=== PATIENT | female | born 1970 | race Caucasian/White ===

== ENCOUNTER → 2020-10-31 08:28 | Outpatient (BNVA) | payer OTHER, SELFPAY | PROVIDERS: PCP Internal Medicine; Visit Provider Advanced Practice Midwife | DX: Z76.89 Persons encountering health services in other specified circumstances (principal) ==

== ENCOUNTER 2020-11-21 12:48 | Outpatient (REF) | payer OTHER, SELFPAY ==
--- NOTE | 2020-11-21 12:55 | US_ITS ---
EXAMINATION: ULTRASOUND PELVIS COMPLETE CLINICAL INFORMATION: Abnormal uterine and vaginal bleeding COMPARISON: None TECHNIQUE: Transabdominal and transvaginal imaging of pelvis is performed. FINDINGS: There is is anteverted and anteflexed measuring 12.2 cm in length, 4.6 cm in AP and 7.1 cm in transverse dimension. Endometrial thickness is 1.16 cm. No focal lesion seen. There are small anechoic nabothian cysts seen in the cervix. The right ovary is not visualized. The left ovary measures 2.22 x 1.49 x 1.48 cm and volume 2.56 cm mL. Previously it measured 4.3 x 1.6 x 2.9 cm. There is no free fluid in cul-de-sac. US/US pelvic complete IMPRESSION: Small nabothian cysts in the cervix. The uterus is unremarkable. The left ovary is unremarkable. Right ovary is not seen.
--- NOTE | 2020-11-21 12:55 | US_ITS ---
EXAMINATION: ULTRASOUND PELVIS COMPLETE CLINICAL INFORMATION: Abnormal uterine and vaginal bleeding COMPARISON: None TECHNIQUE: Transabdominal and transvaginal imaging of pelvis is performed. FINDINGS: There is is anteverted and anteflexed measuring 12.2 cm in length, 4.6 cm in AP and 7.1 cm in transverse dimension. Endometrial thickness is 1.16 cm. No focal lesion seen. There are small anechoic nabothian cysts seen in the cervix. The right ovary is not visualized. The left ovary measures 2.22 x 1.49 x 1.48 cm and volume 2.56 cm mL. Previously it measured 4.3 x 1.6 x 2.9 cm. There is no free fluid in cul-de-sac. US/US transvaginal IMPRESSION: Small nabothian cysts in the cervix. The uterus is unremarkable. The left ovary is unremarkable. Right ovary is not seen.
== END 2020-11-21 12:49 | disposition home or self-care (01) ==
LOC: HO.HMGCX 12:48
PROVIDERS: PCP Internal Medicine; Visit Provider Advanced Practice Midwife
DX: N93.9 Abnormal uterine and vaginal bleeding, unspecified (principal)
CPT/HCPCS: 76830; 76856

== ENCOUNTER → 2020-12-05 15:12 | Outpatient (BNVA) | payer OTHER, SELFPAY | PROVIDERS: PCP Internal Medicine; Visit Provider Advanced Practice Midwife ==

== ENCOUNTER → 2020-12-09 15:23 | Outpatient (BNVA) | payer OTHER, SELFPAY | PROVIDERS: PCP Internal Medicine; Visit Provider Obstetrics & Gynecology | DX: Z76.89 Persons encountering health services in other specified circumstances (principal) ==

== ENCOUNTER → 2020-12-21 15:49 | Outpatient (BNVA) | payer OTHER, SELFPAY | PROVIDERS: PCP Internal Medicine; Visit Provider Obstetrics & Gynecology | DX: Z76.89 Persons encountering health services in other specified circumstances (principal) ==

== ENCOUNTER 2020-12-23 06:40 | Day surgery (SDC) | payer OTHER, SELFPAY ==
--- NOTE | 2020-12-22 09:13 | P.CONAN_ITS ---
Documented by User: Sandra Poe 12/22/20 09:14 HPI - Anesthesia Eval Consult details Narrative: 50yo F for D&C Diagnostic Hysteroscopy Poss Myomectomy, Poss Polypectomy FOR[facility], [facility] Past Medical History Medical History Lobular carcinoma in situ (LCIS) of left breast Family History Family History Father Heart disease Mother Diabetes mellitus Hypertension High cholesterol Maternal Grandmother Diabetes mellitus Maternal Grandfather Emphysema lung Surgical History Surgical History H/O breast biopsy Social History Social History Alcohol intake: current Alcohol intake frequency: 0-2 drinks per day Smoking Status: Never smoker Use of substances other than those prescribed or required for medical reasons: No Advance Directives: No Advance Directives Information Provided: Yes Sexual orientation: Straight/Heterosexual Meds Allergies Allergy/AdvReac Type Severity Reaction Status Date / Time No Known Allergies Allergy Unknown Verified 12/21/20 15:55 Home Medications Medication Instructions Recorded Confirmed Type No Known Home Meds 12/09/20 12/21/20 History Exam Exam Date and Time: December 22, 2020912 Assessment and Plan Assessment Anesthesia Assessment: Chart Reviewed Documented by User: Staci Campos 12/23/20 07:39 [facility] Past Medical History Medical History Lobular carcinoma in situ (LCIS) of left breast Family History Family History Father Heart disease Mother Diabetes mellitus Hypertension High cholesterol Maternal Grandmother Diabetes mellitus Maternal Grandfather Emphysema lung Surgical History Surgical History H/O breast biopsy Social History Social History Alcohol intake: current Alcohol intake frequency: 0-2 drinks per day Smoking Status: Never smoker Use of substances other than those prescribed or required for medical reasons: No Advance Directives: No Advance Directives Information Provided: Yes Sexual orientation: Straight/Heterosexual Meds Allergies Allergy/AdvReac Type Severity Reaction Status Date / Time No Known Allergies Allergy Unknown Verified 12/21/20 15:55 Home Medications Medication Instructions Recorded Confirmed Type No Known Home Meds 12/09/20 12/21/20 History Exam Airway Mallampati Class: I TM Dist: >3cm Neck ROM: Full Loose/Missing/Broken Teeth: No Heart: RRR Lungs: CTA Assessment and Plan Assessment Anesthesia Assessment: Anesthesia Plan Discussed and Chart Reviewed Final Anesthetic Review NPO: Yes ASA Class: I Final Preanesthetic Review: Meds/Allgs Chart Reviewed, Consent Obtained/Reviewed and Anes Risks/Benef Reviewed Patient Risk: Low Procedure Risk: Low Anesthetic Plan Anesthetic Plan: GA Disposition: Standard PACU
[2020-12-23 06:58] VITALS: BP 113/63; PULSE 67; RESP 16; TEMP 37.2; O2SAT 99; BMI 30.2
[2020-12-23] MEDS: Lactated Ringers 1,000 ML 100 ML IVCONT (07:10)
--- NOTE | 2020-12-23 07:49 | MHC.SHP ---
Pre-Procedural Eval Section A The patient is an INPATIENT: No Changes since office visit: No Cold of Flu in the past 2 weeks, No New Medical Problems, No Changes in Medication and No Patient answered all questions The History & Physical has been completed within 30 days and I have reviewed it.: Yes Section B Chief Complaint: Post Menopausal Bleeding Allergies: Allergies Allergy/AdvReac Type Severity Reaction Status Date / Time No Known Allergies Allergy Unknown Verified 12/21/20 15:55 Plan Diagnosis/Plan: Unchanged I have reviewed the history and physical and performed a pertinent physical examination on my patient. No changes have occurred unless specified.
--- NOTE | 2020-12-23 08:21 | PM.OP ---
Brief Operative Note Date of Service: 12/23/20 Pre-op diagnosis: Post Menopausal bleeding with thickened endometrial stripe by US Post-op diagnosis: other (No endometrial pathology) Procedure: Hysteroscopy D&C, Polypectomy Surgeon: Itz Sesay MD Anesthesia: MAC Estimated blood loss (mL): 0 Pathology: other (Endometrial Scrapping. Polyp) Condition: stable Disposition: PACU
--- NOTE | 2020-12-23 08:23 | W.PM.OPN ---
Operative Note Operative Note Date of Service: 12/23/20 Narrative: Preop Diagnosis: Postmenopausal bleeding with thickened endometrial stripe by ultrasound Operation: Diagnostic Hysteroscopy, Dilataion & Curettage Post Op Diagnosis: normal endometrial and endocervical cavity no evidence of pathology QBL: Minimal Anesthesia: MAC Surgeon: Itz Sesay MD Reinforcing Steel Erector: None Complication: None Pathology: Endometrial Scrapings Procedure: The patient was put in the dorsal lithotomy position, scrubbed, and draped in the usual manner. A sterile speculum was inserted in the patient's vagina. The anterior lip of the cervix was grasped with a single tooth tenaculum. The cervix was dilated up to 5 mm, then the scope was inserted in the patient's uterus. Inspection revealed normal endocervical & endometrial cavity with no evidence of pathology. The scope was taken out of the uterine cavity , then sharp curetting was carried on with no complications. At the end of the procedure, all instruments were taken out of the patient uterine and vaginal cavity. The single tooth tenaculum was removed and homeostasis was assured using pressure. The patient tolerated the procedure well and was transferred to the PACU in a stable condition.
[2020-12-23 08:30] VITALS: BP 107/57; PULSE 59; RESP 18; TEMP 37.1; O2SAT 98
[2020-12-23 08:35] VITALS: BP 104/63; PULSE 59; RESP 16; O2SAT 95
[2020-12-23 08:40] VITALS: BP 110/57; PULSE 88; RESP 16; O2SAT 97
[2020-12-23 08:45] VITALS: BP 107/62; PULSE 61; RESP 16; O2SAT 97
== END 2020-12-23 09:15 ==
LOC: HO.SSS 06:40
PROVIDERS: PCP Internal Medicine; Visit Provider Obstetrics & Gynecology
PROC: 0UDB8ZX Extraction of Endometrium, Via Natural or Artificial Opening Endoscopic, Diagnostic (ICD-10-PCS; CPT 58558; principal; 2020-12-23 08:30)
DX: N95.0 Postmenopausal bleeding (principal); Z85.3 Personal history of malignant neoplasm of breast
CPT/HCPCS: 58558; 88305; J1100; J1885; J2250; J2405; J3010

== ENCOUNTER 2020-12-24 10:52 | Outpatient (REF) | payer OTHER, SELFPAY ==
--- NOTE | 2020-12-24 10:57 | MM_ITS ---
EXAMINATION: MM SCREENING DIGITAL BREAST TOMOSYNTHESIS, BILATERAL CLINICAL INFORMATION: Screening. Asymptomatic. Status post left stereotactic biopsy October 2013 and excisional biopsy of November 2013 demonstrating atypical lobular hyperplasia. The lifetime risk of breast cancer based on the Tyrer-Cuzick Model is 32.3%. Additional annual screening with breast MRI may be of benefit in women with a Tyrer-Cuzick score of 20% or greater. COMPARISON: Mammography: December 19, 2019 and studies dating back to May 20, 2012 TECHNIQUE: Digital breast tomosynthesis is performed in both the craniocaudal and mediolateral oblique views along with computer-aided detection (CAD). Synthesized 2D images are generated from the tomosynthesis. Exaggerated left craniocaudal view also performed. FINDINGS: The breasts are heterogeneously dense, which may obscure small masses (ACR BI-RADS breast composition Category c). There are no significant masses, abnormal calcifications, or other abnormalities. MM/MM tomosynthesis screening BI IMPRESSION: There are no significant changes from prior study. ASSESSMENT: BI-RADS 1: Negative RECOMMENDATION: Routine annual mammography screening. This patient's information was entered into a reminder system with a target due date for their next mammogram.
== END 2020-12-24 10:53 | disposition home or self-care (01) ==
LOC: HO.MAMMO 10:52
PROVIDERS: PCP Internal Medicine; Visit Provider Internal Medicine
DX: Z12.31 Encounter for screening mammogram for malignant neoplasm of breast (principal)
CPT/HCPCS: 77063; 77067

== ENCOUNTER → 2021-07-28 15:04 | Outpatient (BNVA) | payer OTHER, SELFPAY | PROVIDERS: PCP Internal Medicine; Visit Provider Advanced Practice Midwife ==

== ENCOUNTER → 2021-11-16 13:01 | Outpatient (BNVA) | payer OTHER, SELFPAY | PROVIDERS: PCP Internal Medicine; Referring Provider Internal Medicine; Visit Provider Nurse Practitioner ==

== ENCOUNTER 2021-12-30 10:40 | Outpatient (REF) | payer OTHER, SELFPAY ==
--- NOTE | ~2021-12-30 | MM_ITS ---
EXAMINATION: MM SCREENING DIGITAL BREAST TOMOSYNTHESIS, BILATERAL CLINICAL INFORMATION: Screening. Asymptomatic. Status post left stereotactic biopsy October 2013 and excisional biopsy of November 2013 demonstrating atypical lobular hyperplasia. COMPARISON: Mammography: 12/24/2020, 12/19/2019, 12/15/2018, 10/25/2018 TECHNIQUE: Digital breast tomosynthesis is performed in both the craniocaudal and mediolateral oblique views along with computer-aided detection (CAD). Synthesized 2D images are generated from the tomosynthesis. FINDINGS: The breasts are heterogeneously dense, which may obscure small masses (ACR BI-RADS breast composition Category c). Breast tissue composition borders on average fibroglandular. Parenchymal pattern is similar to prior studies. There are no significant masses, abnormal calcifications, or other abnormalities. There is no developing density or architectural abnormality. The axilla and skin contours are unremarkable. No significant changes. MM/MM tomosynthesis screening BI IMPRESSION: No significant changes from prior studies. ASSESSMENT: BI-RADS 1: Negative RECOMMENDATION: Routine annual mammography screening. This patient's information was entered into a reminder system with a target due date for their next mammogram.
== END 2021-12-30 10:41 | disposition home or self-care (01) ==
LOC: HO.MAMMO 10:40
PROVIDERS: PCP Internal Medicine; Visit Provider Internal Medicine
DX: Z12.31 Encounter for screening mammogram for malignant neoplasm of breast (principal)
CPT/HCPCS: 77063; 77067

== ENCOUNTER 2022-03-15 09:57 | Day surgery (SDC) | payer OTHER, SELFPAY ==
[2022-03-07 15:05] VITALS: BMI 31.8
[2022-03-15 10:07] VITALS: BP 146/82; PULSE 95; RESP 20; TEMP 36.5; O2SAT 97
--- NOTE | 2022-03-15 10:46 | P.HPSUR_ITS ---
Pre-Procedural Eval Section A Date of Service: 03/15/22 Section B Chief Complaint: screening Relevant Family History (Specify if Yes): No Relevant Social History: None Present Medications: see Short Stay Collaborative assessment Medical History: Significant History (Lobular carcinoma in situ (LCIS) of left breast) History of Previous Operations: Relevant previous surgery/procedure and date(s) (hysteroscopy, breast biopsy ) Allergies: Allergies Allergy/AdvReac Type Severity Reaction Status Date / Time No Known Allergies Allergy Unknown Verified 11/16/21 13:10 Review of Systems Sugical H&P ROS: Negative: Constitution, Cardiovascular, Respiratory, Neurolo gical, Psychiatric, Hem-Onc, Allergic/Immunologic, Gastrointestinal, Genitourinary, Musculoskeletal, Integumentary, Endocrine and Eyes/Ears/Nose/Throat Exam Surgical H&P Exam: Normal: HEENT, Normal: Heart, Normal: Lungs, Normal: Extremities, Normal: Abdomen, Normal: Skin and Normal: Neurological Plan Diagnosis/Plan: Unchanged I have reviewed the history and physical and performed a pertinent physical examination on my patient. No changes have occurred unless specified.
--- NOTE | 2022-03-15 10:48 | P.BOP_ITS ---
Brief Operative Note Date of Service: 03/15/22 Pre-op diagnosis: screening colonoscopy Post-op diagnosis: same Procedure: see op note Surgeon: Americo Roger MD Anesthesia: MAC Was an Split Leather Department Supervisor used for this Procedure?: No Estimated blood loss (mL): 0 Condition: stable Disposition: PACU
--- NOTE | 2022-03-15 10:48 | P.OP_ITS ---
Operative Note Operative Note Date of Service: 03/15/22 Narrative: Operative Information Procedure Description: Colonoscopy Indication: screening colonoscopy Anesthesia: MAC COLONOSCOPY Instrument: Olympus variable stiffness pediatric scope 190L Colonoscopy Monitoring: Vital signs and clinical assessment, continuous EKG monitoring, Pulse oximetry, Carbon Dioxide monitoring and blood pressure monitoring were done throughout the procedure. Colon withdrawal time was 11 minutes. Procedure: The patient was placed in the left lateral decubitis position and pre-procedure medications were administered. After a digital rectal examination of the ano-rectum, the video colonoscope was inserted into the rectum and advanced through the colon to the cecum/TI. The colonoscope was slowly withdrawn in a retrograde panoramic fashion and the colon mucosa was carefully examined including a retroflexed view of the rectum. Findings and interventions are described below. Procedure Difficulty: easy Findings: Terminal Ileum-normal Right sided retroflexion was normal Cecum: 5-6 mm sessile polyp removed with cold forceps Ascending Colon: normal Transverse Colon -normal Descending Colon:normal Sigmoid Colon: normal Rectum: Retroflexion with small internal hemorrhoids, grade II Anorectum - internal hemorrhoids seen at anal verge Colon preparation: [place] Bowel Preparation Scale Right colon; 2 Transverse colon: 3 Left colon; 3 (0 = Unprepared colon segment with mucosa not seen due to solid stool that cannot be cleared. 1 = Portion of mucosa of the colon segment seen, but other areas of the colon segment not well seen due to staining, residual stool and/or opaque liquid. 2 = Minor amount of residual staining, small fragments of stool and/or opaque liquid, but mucosa of colon segment seen well. 3 = Entire mucosa of colon segment seen well with no residual staining, small fragments of stool or opaque liquid) Impression and Post Procedure Diagnosis: polyp internal hemorrhoids Plan: High fiber diet leaflet Avoid straining at stool, epsom salts and sitz bath, anusol supps or cream Repeat Colonoscopy in 5 years if pre cancerous polyp, 10 yrs if benign lesion or earlier if clinically indicated Above findings were reviewed with the patient and relevant handouts were provided if indicated.
[2022-03-15 11:20] VITALS: BP 115/61; PULSE 88; RESP 16; TEMP 36.4; O2SAT 97
[2022-03-15 11:35] VITALS: BP 109/70; PULSE 86; RESP 16; TEMP 36.4; O2SAT 99
--- NOTE | 2022-03-15 12:40 | HO.POSTANES ---
Post Anesthesia Evaluation Post Anesthesia Evaluation Vital Signs: Vital Signs Temp Pulse Resp BP Pulse Ox 03/15/22 11:35 97.5 F 86 16 109/70 99 03/15/22 11:20 97.5 F 88 16 115/61 97 03/15/22 10:07 97.7 F 95 20 146/82 H 97 Anesthesia: Monitored Mental Status: Awake Pain Control: Satisfactory Nausea/Vomiting: None Hydration: Adequate Anesthesia-Related Issues: No Anes. Related Issues
--- NOTE | 2022-03-15 12:53 | HO.ANESPROP2 ---
[facility] Active Problems Active Problems: All Active Problems (Updated 03/07/22 @ 15:05 by Christine Mahoney RN) Abnormal uterine bleeding (AUB) (Acute) Hot flashes (Acute) Lobular carcinoma in situ (LCIS) of left breast (Acute) Postmenopausal bleeding (Acute) Overweight (Acute) Anxiety (Acute) Insomnia (Acute) Encounter for screening for malignant neoplasm of colon (Acute) Past Medical History Medical History COVID-19 vaccine series completed Lobular carcinoma in situ (LCIS) of left breast Functional capacity: independent ambulation Patient : No Family History Family History Father Heart disease Mother Diabetes mellitus Hypertension High cholesterol Maternal Grandmother Diabetes mellitus Maternal Grandfather Emphysema lung Family history of problems with anesthesia: No Surgical History Surgical History H/O breast biopsy Hx of dilation and curettage History of Problems with Anesthesia: No Social History Social History Household Members Other:: son Are you a primary caregivers non medical to a significant other at home: No Do you presently have visiting nurse or other home services: No Alcohol intake: current Alcohol intake frequency: 0-2 drinks per day Patient Tobacco Use Status: Never used Tobacco Sexual orientation: Straight/Heterosexual Gender identity: Female Meds Allergies Allergy/AdvReac Type Severity Reaction Status Date / Time No Known Allergies Allergy Unknown Verified 11/16/21 13:10 Exam Exam Date and Time: March 15, 2022 1253 Height,Weight and Vital Signs: Height 5 ft 2 in Weight 78.925 kg Last Vital Signs Temp 97.5 F 03/15/22 11:35 Pulse 86 03/15/22 11:35 Resp 16 03/15/22 11:35 BP 109/70 03/15/22 11:35 Pulse Ox 99 03/15/22 11:35 Airway Mallampati Class: II TM Dist: >3cm Neck ROM: Full Heart: RRR Lungs: CTA Assessment and Plan Final Anesthetic Review Family History of Problems with Anesthesia: No History of Problems with Anesthesia: No ASA Class: II Final Preanesthetic Review: No Changes in Pt Med Stat, Meds/Allgs Chart Reviewed, Consent Obtained/Reviewed and Anes Risks/Benef Reviewed Patient Risk: Low (U) Procedure Risk: Low Anesthetic Plan Anesthetic Plan: MAC: Disposition: Standard PACU
== END 2022-03-15 12:09 | disposition home or self-care (01) ==
PROVIDERS: PCP Internal Medicine; Visit Provider Internal Medicine Gastroenterology
PROC: 0DJD8ZZ Inspection of Lower Intestinal Tract, Via Natural or Artificial Opening Endoscopic (ICD-10-PCS; CPT 45378; principal; 2022-03-15 11:50)
DX: Z12.11 Encounter for screening for malignant neoplasm of colon (principal); D12.0 Benign neoplasm of cecum; K64.1 Second degree hemorrhoids; D05.02 Lobular carcinoma in situ of left breast
CPT/HCPCS: 45380; 88305

== ENCOUNTER 2023-01-15 09:41 | Outpatient (REF) | payer OTHER, SELFPAY ==
--- NOTE | ~2023-01-15 | MM_ITS ---
EXAMINATION: MM SCREENING DIGITAL BREAST TOMOSYNTHESIS, BILATERAL CLINICAL INFORMATION: Screening. Asymptomatic. Atypical hyperplasia. The lifetime risk of breast cancer based on the Tyrer-Cuzick Model is 31.2%. Additional annual screening with breast MRI may be of benefit in women with a score of 20% or greater. COMPARISON: Mammography: December 30, 2021 and studies dating back to November 08, 2014 TECHNIQUE: Digital breast tomosynthesis is performed in both the craniocaudal and mediolateral oblique views along with computer-aided detection (CAD). Synthesized 2D images are generated from the tomosynthesis. FINDINGS: The breasts are heterogeneously dense, which may obscure small masses (ACR BI-RADS breast composition Category c). There are no new significant masses, abnormal calcifications, or other abnormalities. Postsurgical change again seen upper outer aspect of the left breast. MM/MM tomosynthesis screening BI IMPRESSION: No significant changes ASSESSMENT: BI-RADS 2: Benign RECOMMENDATION: Routine annual mammography screening. This patient's information was entered into a reminder system with a target due date for their next mammogram.
== END 2023-01-15 09:42 | disposition home or self-care (01) ==
LOC: HO.MAMMO 09:41
PROVIDERS: Visit Provider Internal Medicine
DX: Z12.31 Encounter for screening mammogram for malignant neoplasm of breast (principal)
CPT/HCPCS: 77063; 77067

== ENCOUNTER 2023-02-19 15:38 | Outpatient (REF) | payer OTHER, SELFPAY ==
[2023-02-22 09:28] LABS: HPV mRNA E6/E7 rflx Not Detected (Not Detected)
== END 2023-02-19 15:39 | disposition home or self-care (01) ==
LOC: HO.LNP 15:38
PROVIDERS: PCP Internal Medicine; Visit Provider Advanced Practice Midwife
DX: Z01.419 Encounter for gynecological examination (general) (routine) without abnormal findings (principal); N60.92 Unspecified benign mammary dysplasia of left breast; R23.2 Flushing
CPT/HCPCS: 87624; 88142

== ENCOUNTER 2024-01-17 09:08 | Outpatient (REF) | payer OTHER, SELFPAY ==
--- NOTE | ~2024-01-17 | MM_ITS ---
EXAMINATION: MM SCREENING DIGITAL BREAST TOMOSYNTHESIS, BILATERAL CLINICAL INFORMATION: Screening. Asymptomatic. The patient is status post left excision for atypical lobular hyperplasia. COMPARISON: Mammography: This study is compared with prior exams dating back to 2019. TECHNIQUE: Digital breast tomosynthesis is performed in both the craniocaudal and mediolateral oblique views along with computer-aided detection (CAD). Synthesized 2D images are generated from the tomosynthesis. FINDINGS: There are scattered areas of fibroglandular density (ACR BI-RADS breast composition Category b). There are no significant masses, abnormal calcifications, or other abnormalities. MM/MM tomosynthesis screening BI IMPRESSION: No mammographic evidence of malignancy. ASSESSMENT: BI-RADS BI-RADS 1 - Negative RECOMMENDATION: Routine annual mammography screening. 1 year F/U This examination should not preclude the clinical evaluation of a suspicious palpable abnormality. This patient's information was entered into a reminder system with a target due date for their next mammogram.
== END 2024-01-17 09:09 | disposition home or self-care (01) ==
LOC: HO.MAMMO 09:08
PROVIDERS: PCP Internal Medicine; Visit Provider Internal Medicine
DX: Z12.31 Encounter for screening mammogram for malignant neoplasm of breast (principal)
CPT/HCPCS: 77063; 77067

== ENCOUNTER → 2024-01-17 09:30 | Outpatient (BNV) | payer OTHER, SELFPAY | PROVIDERS: PCP Internal Medicine; Visit Provider Radiology Diagnostic Radiology | DX: Z12.31 Encounter for screening mammogram for malignant neoplasm of breast (principal) | CPT/HCPCS: 77063; 77067 ==

== ENCOUNTER 2024-02-25 15:21 | Outpatient (AMB) | payer OTHER, SELFPAY ==
--- NOTE | 2024-02-25 15:28 | MHC.OFFVIS ---
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 She is doing well with no concerns. Attempting to eat a healthy diet with calcium and vitamin D and stays active with exercise. Currently sexually active. Denies any irritation. STI testing offered; she declined. Admits to occasional vaginal dryness currently not trying anything [id number] other than occasional lubricant. Last pap smear; 2022. Last mammogram; 2023. Colonoscopy is UTD-2021. Denies any family history of breast or colon cancer. Maternal aunt-ovarian cancer. [facility] Medical History Atypical lobular hyperplasia (ALH) of left breast COVID-19 vaccine series completed Surgical History Hx of dilation and curettage H/O breast biopsy Family History Father Heart disease Mother Diabetes mellitus Hypertension High cholesterol Maternal Grandmother Diabetes mellitus Maternal Grandfather Emphysema lung Maternal Aunt Ovarian cancer Social History Household Members Other:: son Are you a primary health care facilities inspector to a significant other at home: No Do you presently have visiting nurse or other home services: No Alcohol intake: current Alcohol intake frequency: a few times a week Patient Tobacco Use Status: Never used Tobacco Sexual orientation: Straight/Heterosexual Gender identity: Female Female Reproductive History Menstrual Age of Menarche: 11 control method: none Total pregnancies: 4 Full term: 3 Number of Living Children: 3 Ab spontaneous: 1 Date of last pap smear: 02/19/23 (negative) History of abnormal pap smear: No Date of Mammogram: 01/17/24 Review of Systems Const All systems reviewed & are unremarkable except as noted in HPI and below Reports as per HPI Eyes Reports no additional complaints ENT Reports no additional complaints Card Reports no additional complaints Resp Reports no additional complaints GI Reports as per [facility] and Reports no additional complaints Reports as per HPI Musc Reports no additional complaints Skin/Breast Reports as per HPI Neuro Reports no additional complaints Psych Reports no additional complaints Endo Reports no additional complaints Jey/Lymph Reports no additional complaints Aller/Immun Reports no additional complaints Physical Exam Vital Signs: Last Vital Signs BP 110/70 02/25/24 15:29 BMI result Body Mass Index 33.8 Const General: cooperative, healthy appearing, no acute distress, well developed and alert Orientation/consciousness: patient oriented x3 HEENT Head: Yes normal to inspection Eyes General: appearance normal, both eyes and all related structures Neck Neck: Yes normal visual inspection Thyroid: Thyroid normal Chest Chest palpation & inspection: normal inspection of the chest and other (no puckering, dimpling, peau de orange, retraction, discharge, masses) Breast/axilla inspection: normal inspection of the breasts Breast/axilla palpation: normal palpation of the breasts Resp Effort & Inspection: normal respiratory effort GI Inspection: Yes normal to inspection Palpation (GI): Soft to palpation Rectal Exam - Female: deferred General: Yes bladder normal to palpation External Female Exam: normal external appearance and normal appearance of the urethra Speculum Exam - Vagina: normal appearance of the vagina, normal palpation and normal vaginal discharge Speculum Exam - Cervix: normal appearance of the cervix and normal palpation Bimanual exam- vagina & uterus: normal bimanual exam, normal palpation, uterine size normal, bladder normal to palpation, normal palpation and non-tender Bimanual Exam- Adnexa, other: no masses Skin General skin exam: no rashes or lesions noted Rashes: no rashes Neuro General: patient oriented x3 Cognition (Neuro): normal cognition Extrem General: Yes normal to inspection Psych Attitude: cooperative Thought process: Normal thought process present Assessment & Plan Assessment & Plan (1) Encounter for well woman exam with routine gynecological exam: Code(s): Z01.419 - Encounter for gynecological examination (general) (routine) without abnormal findings Plan Discussed: Current recommendations for pap smears per ASCCP guidelines. Breast awareness, periodic self breast exams and yearly mammogram. Maintain a healthy lifestyle, well balanced diet including Calcium 1,200 mg and Vitamin D 600 IU daily, and routine exercise. Discussed the use of Replens twice a week. Contact the office with any postmenopausal bleeding. Patient verbalizes understanding and agrees to the plan of care. She was given opportunity to ask questions and all questions were answered to the best of my ability. RTO in 1 year for annual intermodal customer service exam. This note is constructed using voice recognition software. While every effort has been made to ensure accuracy, care aid errors may have been included. Coding Level of Care Code Est Pt Prev Care 40-64y(99334) Diagnoses Encounter for well woman exam with routine gynecological exam Z01.419
[2024-02-25 15:29] VITALS: BP 110/70; BMI 33.8
== END 2024-02-25 15:55 | disposition home or self-care (01) ==
PROVIDERS: Visit Provider Advanced Practice Midwife
DX: Z01.419 Encounter for gynecological examination (general) (routine) without abnormal findings (principal)
CPT/HCPCS: 99396

== ENCOUNTER → 2024-02-25 15:21 | Outpatient (BNVA) | payer OTHER, SELFPAY | PROVIDERS: Visit Provider Advanced Practice Midwife ==

== ENCOUNTER → 2024-07-22 13:40 | Outpatient (RCR) | payer OTHER, SELFPAY ==
[2020-11-03 15:58] VITALS: BP 131/73; PULSE 97; RESP 12; TEMP 37.2; O2SAT 98; BMI 30.6
--- NOTE | 2020-11-03 16:07 | PM.HEMONCPN ---
Medical Summary - Medical Summary Date of Service: 11/03/20 Chief complaint: Follow-up for LCIS of the left breast. 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 CURRENT THERAPY: 1. Status post lumpectomy. 2. Tamoxifen started January 29, 2015. Completed 5 years of therapy earlier in the year. Interval History Interval history: This is a pleasant 50 year-old lady, here for a follow-up visit. She noted that she had a regular period, after a year of no periods. She felt crampy and had some breast tenderness prior to it starting. She went for a [employer] exam. Exam was fine however she is scheduled for a pelvic ultrasound 11/15. Hormonal studies have also been ordered. She will be following up with Amie Aguilera. She denies any easy fatigability. Denies any headache no dizziness. No chest pain or trouble breathing. No lower extremity edema. No abdominal pain nausea vomiting heartburn indigestion. Bowels are moving no gross blood in it. She enjoys a good appetite. Her weight fluctuates. It is down. She has good energy level. She is in good spirits. Rest of the review of systems is unremarkable. She is tolerating the tamoxifen quite well except for occasional hot flashes. 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 She has been working from home. However it is very difficult to keep kids of that age involved, on the computer. The parents have to be with them. She is looking forward to winter vacation. Review of Systems - Constitutional Reports system reviewed and no additional complaints, except as documented, Denies lack of energy - Eyes Reports system reviewed and no additional complaints, except as documented - ENT Reports system reviewed and no additional complaints, except as documented - Cardiovascular Reports system reviewed and no additional complaints, except as documented, Denies chest pain at rest - Respiratory Reports no additional respiratory complaints, Denies chest congestion - Gastrointestinal Reports system reviewed and no additional complaints, except as documented, Denies abdominal pain, Denies change in bowel habits - Genitourinary Reports no additional female genitourinary complaints, Reports abnormal periods - Musculoskeletal Reports system reviewed and no additional complaints, except as documented, Denies abnormal walking - Integumentary/Breasts Skin/Breast: Reports no additional skin complaints, Denies bleeding lesions - Neurologic Reports system reviewed and no additional complaints, except as documented - Psychiatric Reports system reviewed and no additional complaints, except as documented - Endocrine Reports no additional endocrine complaints - Hematologic/Lymphatic Reports system reviewed and no additional complaints, except as documented - Allergic/Immunologic Reports system reviewed and no additional complaints, except as documented PMFSH Medical History: Medical History (Last Updated 11/03/20 @ 16:02 by Nadira Kirk) Lobular carcinoma in situ (LCIS) of left breast Functional capacity: independent ambulation Patient : No Family History: Family History (Last Reviewed 10/31/20 @ 09:44 by Amie Aguilera CNM) Father Heart disease Mother Diabetes mellitus Hypertension High cholesterol Maternal Grandmother Diabetes mellitus Maternal Grandfather Emphysema lung Surgical History: Surgical History (Last Reviewed 10/31/20 @ 09:44 by Amie Aguilera CNM) H/O breast biopsy Home Medications and Allergies Allergies Allergy/AdvReac Type Severity Reaction Status Date / Time No Known Allergies Allergy Unknown Unverified 08/11/20 16:14 Exam Vital signs: Vital Signs Temp 98.9 F 11/03/20 15:58 Pulse 97 11/03/20 15:58 Resp 12 11/03/20 15:58 BP 131/73 11/03/20 15:58 Pulse Ox 98 11/03/20 15:58 Intake & Output 11/02/20 11/03/20 11/03/20 18:59 06:59 18:59 Other: Weight 75.9 kg Weight 75.9 kg Body Mass Index 30.6 - Constitutional Present: no acute distress - Routine HEENT Exam Head: Present: normal inspection Eye: Present: normal appearance ENT: Present: mucous membranes moist - Routine Neck Exam Present: full ROM - Routine Respiratory Exam Present: CTAB - Routine Cardiovascular Exam Cardiovascular: Present: RRR, S1, S2 - Routine Abdominal Exam Present: soft, nontender - Routine Rectal Exam Patient deferred: digital exam - Routine Extremities Exam Present: nontender - Routine Back/Spine/Pelvis Exam Back/Spine: Present: full ROM - Routine Skin Exam Present: intact - Routine Neurological Exam Present: alert, oriented X3 - Routine Psychiatric Exam Present: normal affect Data - Labs CBC & Chem 7: 11/03/20 16:30 11/03/20 16:30 Progress Note: A/P (1) Lobular carcinoma in situ (LCIS) of left breast Status: Acute Assessment and plan: 50 year-old lady with history of Lobular Carcinoma in Situ of the Left Breast. Status post lumpectomy. Has been maintained on Tamoxifen, since January of 2015. She has completed 5 years of therapy. She tolerated it extremely well, except for occasional hot flashes, which were tolerable. She now had her period, out of the blue after a year. PLAN: She is currently undergoing workup through the [facility] [employer] [facility] [facility]. She had her mammogram, on November,. Results: There are no significant changes from prior study. It was benign. Bone density was back in March of 2016 and was normal. She is scheduled for a repeat mammogram and bone density in November. She will continue on calcium and vitamin D supplements. Her vitamin D level was low at 24.2. She has been taking 1000 mcg daily. I will recheck the D level today. She will also exercise for her bone health and generally health. She will return here in 6 months for a followup visit. Thank you. Please send a copy to: Dr. Rod Overton. - Time Spent With Patient Total time spent is greater than 50% in coordination of care (as documented) at patient's floor/unit and/or counseling patient: 25 - 35 minutes
[2020-11-03 16:37] LABS: MANUAL DIFF FLAG NO
[2020-11-03 16:40] LABS: Basophils Absolute Auto 0.1 X10*3/uL (0.0-0.2); Basophils Percent Auto 1.1 % (0-2); Eosinophils Absolute Auto 0.2 X10*3/uL (0.0-0.4); Eosinophils Percent Auto 3.5 % (0-4); Hematocrit 39.5 % (37-47); Hemoglobin 13.7 g/dl (12.0-16.0); Imm Gran Abs Auto 0.03 X10*3/uL (0.00-0.03); Imm Gran Pct Auto 0.5 % (0.0-0.4); Lymphocytes Percent Auto 29.8 % (20-40); Mean Corpuscular HGB Conc 34.7 g/dl (31.0-35.0); Mean Corpuscular Volume 86.4 fL (80-98); Mean Platelet Volume 9.9 fL (9.4-12.3); Monocytes Absolute Auto 0.8 X10*3/uL (0.1-1.2); Monocytes Percent Auto 11.9 % (2-11); Neutrophils Absolute Auto 3.5 X10*3/uL (2.0-8.3); Neutrophils Percent Auto 53.2 % (45-73); Platelet Count 285 X10*3/uL (160-400); Red Blood Count 4.57 X10*6/uL (4.20-5.50); Red Cell Distribution Width 11.6 % (11.0-16.0); White Blood Count 6.6 X10*3/uL (4.8-10.8)
[2020-11-03 17:00] LABS: Alanine Aminotransferase 23 U/L (0-31); Albumin Level 4.4 g/dL (3.5-5.0); Alkaline Phosphatase 66 U/L (39-117); Anion Gap 14 (12-20); Aspartate Amino Transferase 18 U/L (5-31); Bilirubin Total 0.8 mg/dL (0.0-1.0); Blood Urea Nitrogen 17 mg/dL (9-16); Calcium 8.7 mg/dL (8.4-10.2); Carbon Dioxide 28 mmol/L (22-29); Chloride 102 mmol/L (96-108); Creatinine Clr Calc Pharmacy 61.5; Estimated Glomerular Filt Rate 57; Glucose Random 108 mg/dL (60-115); Potassium 4.3 mmol/l (3.3-5.1); Sodium 140 mmol/L (135-145); Total Protein 6.8 g/dL (6.5-8.0)
[2020-11-04 16:13] LABS: Follicle Stimulating Hormone 87.7 mIU/mL
== END | disposition home or self-care (01) ==
LOC: HO.ONC 11-03 15:49
PROVIDERS: Advanced Practice Midwife; Visit Provider Internal Medicine Medical Oncology
DX: Z86.000 Personal history of in-situ neoplasm of breast (principal); Z79.899 Other long term (current) drug therapy
CPT/HCPCS: 36415; 80053; 83001; 85025; 99214